=== PATIENT | female | born 1985 | race African-American/Black ===

== ENCOUNTER 2020-02-16 09:45 | Emergency (ER) | payer BC ==
[~2020-02-16 09:45] MED LIST changes: -HCTZ 25MG25 MG PO
[2020-02-16 10:16] LABS: EOS # 0.1 (0.04-0.40); EOS % 0.7 % (1.0-5.0); HEMATOCRIT 45.6 % (37.0-47.0); HEMOGLOBIN 15.4 g/dL (12.5-16.0); LYMPH# 1.3 (1.50-4.00); MEAN CELL VOLUME 86 fl (78-100); MEAN CORPUSCULAR HEMOGLOBIN 29 pg (27-31); MEAN CORPUSCULAR HGB CONC 34 g/dL (33-37); MONO # 0.4 (0.20-0.80); NEU # 5.4 (1.40-6.50); PLATELET COUNT 190 K/mm3 (130-400); RED BLOOD COUNT 5.31 M/mm3 (4.10-5.30); RED CELL DISTRIBUTION WIDTH 13.3 % (11.5-14.5); WHITE BLOOD COUNT 7.2 K/mm3 (4.8-10.8)
[2020-02-16 10:19] LABS: MEAN PLATELET VOLUME 12.3 fl (7.4-10.4)
[2020-02-16 10:21] LABS: ALBUMIN 4.3 g/dL (3.5-5.0)
[2020-02-16 10:22] LABS: POTASSIUM 3.7 mmol/L (3.5-5.1); SODIUM 142 mmol/L (136-145)
[2020-02-16 10:23] LABS: CALCIUM 9.3 mg/dL (8.3-10.5)
[2020-02-16 10:24] LABS: GLUCOSE 101 mg/dL (65-105); TOTAL PROTEIN 7.7 g/dL (6.4-8.3)
[2020-02-16 10:25] LABS: CARBON DIOXIDE 25 mmol/L (22-29)
[2020-02-16 10:26] LABS: TOTAL BILIRUBIN 1.6 mg/dL (0.2-1.2)
[2020-02-16 10:29] LABS: AST-SGOT 16 U/L (5-34)
[2020-02-16 10:30] LABS: ALT/SGPT 16 U/L (0-55)
[2020-02-16 10:39] LABS: TROPONIN-I < 0.03 ng/mL (<0.030)
[2020-02-16 11:07] LABS: URINE APPEARANCE CLEAR; URINE BILIRUBIN NEGATIVE (NEGATIVE); URINE BLOOD 250 ery/uL (NEGATIVE); URINE COLOR YELLOW; URINE GLUCOSE NEGATIVE (NEGATIVE); URINE KETONE NEGATIVE (NEGATIVE); URINE LEUKOCYTE ESTERASE NEGATIVE (NEGATIVE); URINE MUCUS PRESENT (NOT PRESENT); URINE NITRATE NEGATIVE (NEGATIVE); URINE PROTEIN(semi-quant) TRACE mg/dL (NEGATIVE); URINE UROBILINOGEN NORMAL (NORMAL)
[2020-02-16] MEDS ORDERED: HCTZ 25MG25 MG PO (12:06)
[2020-02-16 12:13] VITALS: BP 146/93
== END 2020-02-16 12:23 | disposition home or self-care (01) ==
LOC: ED 09:45
PROVIDERS: Nurse Practitioner
DX: I10 Essential (primary) hypertension (principal); R53.81 Other malaise; J02.9 Acute pharyngitis, unspecified; B34.9 Viral infection, unspecified; Z32.02 Encounter for pregnancy test, result negative; Z90.49 Acquired absence of other specified parts of digestive tract; Z88.6 Allergy status to analgesic agent

== ENCOUNTER → 2020-02-16 | Outpatient (CLI) | payer BC ==
[~2020-02-16] MED LIST: HCTZ 25MG25 MG PO; IRON325 M1 PO; PRENATAL1 TA3 PO
[2020-02-16 09:56] VITALS: BP 179/133
== END ==
LOC: LAB 10:41
DX: J02.9 Acute pharyngitis, unspecified (principal); I10 Essential (primary) hypertension; R09.81 Nasal congestion; Z20.828 Contact with and (suspected) exposure to other viral communicable diseases

== ENCOUNTER 2020-11-21 07:54 | Emergency (ER) | payer BC ==
[~2020-11-21 07:54] MED LIST changes: +HCTZ 25MG25 MG PO
[2020-11-21] MEDS ORDERED: AMLODIPINE BESYL5 MG PO (07:58)
[2020-11-21] MEDS ORDERED: CYCLOBENZAPRINE10 M1 PO (10:18)
[2020-11-21] MEDS ORDERED: PERCOCET 325 MG1 TA5 PO (10:18)
[2020-11-21 10:27] VITALS: BP 136/101
== END 2020-11-21 10:25 | disposition home or self-care (01) ==
LOC: ED 07:54
DX: M62.830 Muscle spasm of back (principal); I10 Essential (primary) hypertension; Z88.5 Allergy status to narcotic agent; Z79.899 Other long term (current) drug therapy